=== PATIENT | female | born 1965 | race Caucasian/White ===

== ENCOUNTER 2025-01-31 09:08 | Emergency (ER) | payer OTHER ==
[~2025-01-31] VITALS: Ht 162.6 cm; Wt 59.0 kg
--- NOTE | 2025-01-31 09:35 | ED.PDOC ---
SOB-HPI HPI Comments 59 year old female presents to the ED via EMS with a chief complaint of shortness of breath onset today. Per EMS, patient was experiencing shortness of breath as well as dizziness, family called 911. Upon EMS arrival, O2 sat was 89% on RA, placed on 4L O2 sat 95%, tachycardiac 128, BP 129/87. PMHx brain tumor. Denies chest pain, fall, injury, nausea, vomiting, diarrhea, headache, fever, chills. No other symptoms or modifying factors present at this time. Chief Complaint: Shortness of Breath Time Seen by MD: 09:15 Reviewed notes: Medications, Allergies Information Source: Patient, Emergency Med Personnel Mode of Arrival: EMS Severity: Moderate Timing: Hours Duration: Since onset Context: At Rest PE Risk Factors: None History of: None Prehospital treatment: Oxygen Modifying Factors: Nothing Associated Signs and Symptoms: None Past Medical History Past Medical History (Other): brain tumor Surgical History: Denies all surgeries SPORTS PHOTOGRAPHER History: No Pertinent SPORTS PHOTOGRAPHER History Family History Family History: Reviewed,noncontributory to illness, No family hx of Cancer, No family hx of DM, No family hx of Heart peggy, No family hx of HTN, No family hx ofKidney peggy, No family hx of Liver peggy, No family hx of Lung peggy, No family hx of Stroke Social History Smoker: Non-Smoker Alcohol: Denies ETOH Use Drugs: Denies Drug Use Lives In: Home Constitutional: denies: chills, diaphoresis, fatigue, fever, malaise, sweats, weakness, others EENTM: denies: blurred vision, double vision, ear bleeding, ear discharge, ear drainage, ear pain, ear ringing, eye pain, eye redness, hearing loss, mouth pain, mouth swelling, nasal discharge, nose bleeding, nose congestion, nose pain, photophobia, tearing, throat pain, throat swelling, voice changes, others Respiratory: reports: shortness of breath; denies: cough, hemoptysis, orthopnea, SOB at rest, SOB with excertion, stridor, wheezing, others Cardiovascular: denies: chest pain, dizzy spells, diaphoresis, Dyspnea on exertion, edema, irregular heart beat, left arm pain, lightheadedness, palpitations, PND, syncope, others Gastrointestinal: denies: abdomen distended, abdominal pain, blood streaked bowels, constipated, diarrhea, dysphagia, difficulty swallowing, hematemesis, melena, nausea, poor appetite, poor fluid intake, rectal bleeding, rectal pain, vomiting, others Genitourinary: denies: abnormal vagina bleeding, burning, dyspareunia, dysuria, flank pain, frequency, hematuria, incontinence, pain, , vagina discharge, urgency, others Neurological: reports: dizziness; denies: fainting, headache, left sided numbness, left sided weakness, numbness, paresthesia, pre-existing deficit, right sided numbness, right sided weakness, seizure, speech problems, tingling, tremors, weakness, others Musculoskeletal: denies: back pain, gout, joint pain, joint swelling, muscle pain, muscle stiffness, neck pain, others Integumetry: denies: bruises, change in color, change in hair/nails, dryness, laceration, lesions, lumps, rash, wounds, others Allergic/Immunocompromised: denies: Difficulty Healing, Frequent Infections, Hives, Itching, others Hematologic/Lymphatic: denies: anemia, blood clots, easy bleeding, easy bruising, swollen glands, others Endocrine: denies: excessive hunger, excessive sweating, excessive thirst, excessive urination, flushing, intolerance to cold, intolerance to heat, unexplained weight gain, unexplained weight loss, others Psychiatric: denies: anxiety, bipolar disorder, depression, hopeless, panic disorder, schizophrenia, sleepless, suicidal, others All Other Systems: Reviewed and Negative Physical Exam General Appearance: Moderate Distress, Normal HEENT: Normal ENT Inspection, Pharynx Normal, TMs Normal Neck: Full Range of Motion, Non-Tender, Normal, Normal Inspection Respiratory: Chest Non-Tender, Lungs Clear, No Accessory Muscle Use, No Respiratory Distress, Normal Breath Sounds Cardiovascular: No Edema, No JVD, No Murmur, No Gallop, Normal Peripheral Pulses, Regular Rate/Rhythm Breast Exam: Deferred Gastrointestinal: No Organomegaly, Non Tender, No Pulsatile Mass, Normal Bowel Sounds, Soft Genitalia: Deferred Pelvic: Deferred Rectal: Deferred Extremities: No calf tenderness, Normal capillary refill, Normal inspection, Normal range of motion, Non-tender, No pedal edema Musculoskeletal : Apperance: Normal Neurologic: Alert, 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 Was a procedure done?: No Differential Dx Differential Diagnosis: Anxiety, Asthma, Bronchitis, CHF, COPD X-Ray, Labs, Meds, VS Vital Signs Date Time Temp Pulse Resp B/P (MAP) Pulse Ox O2 Delivery O2 Flow Rate FiO2 01/31/25 10:39 126 25 92 Nasal Cannula* 4 36 01/31/25 10:38 98.9 126 25 119/81 (94) 92 98.9 01/31/25 09:34 20 94 Nasal Cannula* 4 36 01/31/25 09:27 99.1 130 20 115/72 (86) 94 99.1 01/31/25 09:14 123 Lab Test 01/31/25 09:55 Range/Units White Blood Count 5.2 4.4-10.8 10^3/uL Red Blood Count 4.05 4.0-5.20 10^6/uL Hemoglobin 12.8 12.2-16.2 g/dL Hematocrit 38.7 36.0-46.0 % Mean Corpuscular Volume 95.6 80.0-100.0 fL Mean Corpuscular Hemoglobin 31.5 28.0-32.0 pg Mean Corpuscular Hemoglobin Concent 33.0 32.0-36.0 g/dL Red Cell Distribution Width 14.4 H 11.8-14.3 % Platelet Count 205 140-450 10^3/uL Mean Platelet Volume 7.6 6.9-10.8 fL Neutrophils (%) (Auto) 37.0-80.0 % Lymphocytes (%) (Auto) 10.0-50.0 % Monocytes (%) (Auto) 0.0-12.0 % Basophils (%) (Auto) 0.0-2.0 % Neutrophils # (Auto) 1.6-8.6 10 ^3/uL Lymphocytes # (Auto) 0.4-5.4 10 ^3/uL Monocytes # (Auto) 0-1.3 10 ^3/uL Differential Total Cells Counted Pending Neutrophils % (Manual) Pending Band Neutrophils % (Manual) Pending Lymphocytes % (Manual) Pending Monocytes % (Manual) Pending Eosinophils % (Manual) Pending Basophils % (Manual) Pending Metamyelocytes % (manual) Pending Myelocytes % (Manual) Pending Promyelocytes % (Manual) Pending Blast Cells % (Manual) Pending Reactive Lymphocytes Pending Platelet Estimate Pending Sodium Level 140 136-145 mmol/L Potassium Level 3.1 L 3.5-5.1 mmol/L Chloride Level 106 98-107 mmol/L Carbon Dioxide Level 24 20-31 mmol/L Anion Gap 10 5-15 Blood Urea Nitrogen 11 9-23 mg/dL Creatinine 0.79 0.550-1.02 mg/dL Glomerular Filtration Rate Calc 85 >90 mL/min BUN/Creatinine Ratio 13.9 10.0-20.0 Serum Glucose 101 74-106 mg/dL Calcium Level 9.2 8.7-10.4 mg/dL Patient alert. Speech affected. Shortness a breath. Placed on oxygen. Potassium low. Was given potassium. History of brain mass. No headache. No dizziness. Hemoglobin within normal limits. Waiting for family. Continue to monitor. [place] [address] Ph: [phone] DIAGNOSTIC IMAGING Diagnostic Imaging Report : [id number] Signed PATIENT: AUTUMN REYESCCT: [id number] UNIT: [id number] : 1965 LOC: ER ROOM / BED: / AGE / SEX: 59 / F ADM STATUS: REG ER SERVICE [id number] ORDERING PHYSICIAN: SHAHID MACARIO MD PROCEDURE(s): HWOCT - HEAD WITHOUT CONTRAST REASON: mass ORDER NUMBER(s): [id number], ACCESSION NUMBER(s): [id number] EXAM: CT HEAD WITHOUT CONTRAST INDICATION: Mass TECHNIQUE: CT of the head without intravenous contrast. Coronal and sagittal reformatted images are submitted. Radiation Dose : 1. Head: CT Dose: CTDI volume is 51.4 mGy. Dose-length product is 822.4 mGy*cm The dose indicators for CT are the volume Computed Tomography (CT) Dose Index (CTDIvol) and the Dose Length Product (DLP), and are measured in units of mGy and mGy-cm, respectively. These indicators are not patient dose, but values generated from the CT scanner acquisition factors. The report includes radiation exposure data for exposures received during this examination. All CT scans at this medical facility are performed using dose modulation techniques as appropriate to a performed exam including the following: Automated exposure control was utilized; adjustment of the MA and/or KV according to patient size; and use of iterative reconstruction technique. COMPARISON: None FINDINGS: There is extensive vasogenic edema centered within the left frontal and temporal lobe causing effacement of the left sided sulci. Heterogeneous attenuation of t he brain parenchyma in the left frontal lobe abutting the head of the left caudate lobe. There is also effacement of the frontal horn of the left lateral ventricle and there is [id number] shift of midline by 8 mm. No evidence of acute intracranial hemorrhage. No evidence of hydrocephalus. The cross-white differentiation is intact. The visualized paranasal sinuses and mastoid air cells are clear. No depressed calvarial fracture. Torsten hole in the left frontal bone. The surrounding soft tissues are unremarkable. IMPRESSION: 1. Extensive vasogenic edema in the left frontal and temporal lobe with regional mass effect and rightward shift of midline by 8 mm. An underlying mass lesion is suspected in the left frontal lobe, probably in close proximity to the head of the left caudate nucleus. MRI of the brain without and with intravenous contrast is recommended for further evaluation. ATED BY: SONG MÉNDEZ MD DICTATED DATE/TIME: 01/31/251057 SIGNED BY: SONG MÉNDEZ MD SIGNED DATE/TIME: 01/31/251057 CC: [place] [id number] Ph: [phone] DIAGNOSTIC IMAGING Diagnostic Imaging Report : [id number] Signed PATIENT: AUTUMN REYESCCT: [id number] UNIT: [id number] : 1965 LOC: ER ROOM / BED: / AGE / SEX: 59 / F ADM STATUS: REG ER SERVICE 0936 ORDERING PHYSICIAN: SHAHID MACARIO MD PROCEDURE(s): CXRP - CHEST PORTABLE REASON: sob ORDER NUMBER(s): [id number], ACCESSION NUMBER(s): [id number] XY CHEST PORTABLE, HISTORY: sob COMPARISON: None None TECHNICAL DATA: 1 view of the chest was obtained. FINDINGS: Lines and tubes: None Cardiomediastinal silhouette: normal Pulmonary vasculature: prominent Lung expansion: normal Lung airspace: normal Lung interstitium: normal Pleura: normal Pneumothorax: no Bones: Unremarkable Other: no IMPRESSION: Pulmonary congestion. ATED BY: DOUGLAS CARROLL MD DICTATED DATE/TIME: 01/31/251103 SIGNED BY: DOUGLAS CARROLL MD SIGNED DATE/TIME: 01/31/251103 CC: Time of 1ST Reevaluation: 09:45 Reevaluation 1ST: Unchanged Patient Education/Counseling: Diagnosis, Treatment, Prognosis Family Education/Counseling: No Family Present Additional Information The following tests were ordered, and results were reviewed by me: CBC, XY CHEST, UA, BMP, CT HEAD WO CONTRAST Additional Information was gathered from interviewing the following independent historians: EMS I reviewed and agreed with the following test results read by other providers: CT HEAD WO CONTRAST I discussed treatment and results with medical personnel and: Patient Comprehensive systems review obtained and negative except for what is stated in the HPI. Departure 1 Departure Time of Disposition: 11:09 Impression: Primary Impression: Brain mass Additional Impressions: Pneumonitis Hypokalemia Disposition: ADMITTED INPATIENT Admit to: Med Surg Condition: Guarded Critical Care Note Critical Care Time?: No Stability Stability form required: No Heart Score Heart Score: Heart Score Response (Comments) Value History N/A 0 EKG N/A 0 Age N/A 0 Risk Factors N/A 0 Troponin N/A 0 Total 0 I personally scribed for SHAHID MACARIO MD ([email or web address]) on 01/31/25 at 09:35. Electronically submitted by Elise Solano ([email or web address]). I personally scribed for SHAHID MACARIO MD ([email or web address]) on 01/31/25 at 09:45. Electronically submitted by Elise Solano ([email or web address]). I personally scribed for SHAHID MACARIO MD ([email or web address]) on 01/31/25 at 11:51. Electronically submitted by Elise Solano ([email or web address]). SHAHID MACARIO MD Jan 31, 2025 09:35
[2025-01-31 10:34] LABS: Chloride 106 mmol/L (98-107); Sodium 140 mmol/L (136-145)
[2025-01-31 10:35] LABS: Anion Gap 10 (5-15); Calcium 9.2 mg/dL (8.7-10.4); Carbon Dioxide 24 mmol/L (20-31)
[2025-01-31 10:39] VITALS: PULSE 126; RESP 25; O2SAT 92
[2025-01-31 10:40] LABS: BUN/Creatinine Ratio 13.9 (10.0-20.0); Blood Urea Nitrogen 11 mg/dL (9-23); Glucose 101 mg/dL (74-106)
[2025-01-31 10:45] LABS: Potassium 3.1 mmol/L (3.5-5.1)
[2025-01-31 10:52] LABS: Hematocrit 38.7 % (36.0-46.0); Hemoglobin 12.8 g/dL (12.2-16.2); Mean Corpuscular Hemoglobin 31.5 pg (28.0-32.0); Mean Corpuscular Volume 95.6 fL (80.0-100.0); Platelet Count (auto) 205 10^3/uL (140-450); Red Blood Cells 4.05 10^6/uL (4.0-5.20); Red Cell Distribution Width 14.4 % (11.8-14.3); White Blood Cell 5.2 10^3/uL (4.4-10.8)
[2025-01-31 10:53] LABS: Basophils % (manual) 0 (0.0-2.0); Blast Cells 0; Metamyelocytes % 0; Myelocytes % 0; Promyelocytes % 0; Reactive Lymphocytes 0
--- NOTE | 2025-01-31 11:00 | DVH ---
EXAM: CT HEAD WITHOUT CONTRAST INDICATION: Mass TECHNIQUE: CT of the head without intravenous contrast. Coronal and sagittal reformatted images are s ubmitted. Radiation Dose : 1. Head: CT Dose: CTDI volume is 51.4 mGy. Dose-length product is 822.4 mGy*cm The dose indicators for CT are the volume Computed Tomography (CT) Dose Index (CTDIvol) and the Dose Length Product (DLP), and are measured in units of mGy and mGy-cm, respectively. These indicators are not patient dose, but values generated from the CT scanner acquisition factors. The report includes radiation exposure data for exposures received during this examination. All CT scans at this medical facility are performed using dose modulation techniques as appropriate to a performed exam including the following: Automated exposure control was utilized; adjustment of the MA and/or KV according to patient size; and use of iterative reconstruction technique. COMPARISON: None FINDINGS: There is extensive vasogenic edema centered within the left frontal and temporal lobe causing effacem ent of the left sided sulci. Heterogeneous attenuation of the brain parenchyma in the left frontal lo be abutting the head of the left caudate lobe. There is also effacement of the frontal horn of the le ft lateral ventricle and there is [id number]-fx-xhnde shift of midline by 8 mm. No evidence of acute intrac ranial hemorrhage. No evidence of hydrocephalus. The cross-white differentiation is intact. The visualized paranasal sinuses and mastoid air cells are clear. No depressed calvarial fracture. Torsten hole in the left frontal bone. The surrounding soft tissues are unremarkable. IMPRESSION: 1. Extensive vasogenic edema in the left frontal and temporal lobe with regional mass effect and righ tward shift of midline by 8 mm. An underlying mass lesion is suspected in the left frontal lobe, prob ably in close proximity to the head of the left caudate nucleus. MRI of the brain without and with in travenous contrast is recommended for further evaluation.
--- NOTE | 2025-01-31 11:07 | DVH ---
XY CHEST PORTABLE, HISTORY: sob COMPARISON: None None TECHNICAL DATA: 1 view of the chest was obtained. FINDINGS: Lines and tubes: None Cardiomediastinal silhouette: normal Pulmonary vasculature: prominent Lung expansion: normal Lung airspace: normal Lung interstitium: normal Pleura: normal Pneumothorax: no Bones: Unremarkable Other: no IMPRESSION: Pulmonary congestion.
[2025-01-31 12:20] LABS: Band Neutrophils % (manual) 4; Eosinophils % (manual) 1 (0-7); Lymphocytes % (manual) 11 (10.0-50.0); Monocytes % (manual) 6 (0-12); Platelet Estimate Adequate
[2025-01-31] MEDS: methylPREDNISolone SOD SUCC 125 MG/2 ML VL IV ONE (13:02)
[2025-01-31 13:12] LABS: Urine Bacteria FEW /hpf (None Seen); Urine Blood TRACE /uL (Negative); Urine Clarity Turbid (Clear); Urine Color Yellow (Yellow); Urine Mucus FEW (None Seen); Urine Protein, UAD Negative (Negative); Urine Specific Gravity 1.015 (1.001-1.035); Urine Squamous Epithelial Cell FEW /hpf (<5); Urine Urobilinogen Normal (Negative); Urine WBC 13 /HPF (0-5); Urine pH 6.5 (5.0-9.0)
[2025-01-31 14:30] VITALS: BP 138/94; PULSE 122; RESP 29; TEMP 98.1; O2SAT 90
--- NOTE | 2025-01-31 23:38 | ECG ---
[facility] Test Date: 2025-01-31 Test Time: 09:14:01 Pat Name: ENRIKE ALLEN Department: ED Room: Gender: F Hardscape Foreman: jose manuel : 1965 Requested By: SHAHID MACARIO Order Number: [id number] Reading MD: Measurements Intervals [place] Rate: 123 P: 52 PA: 140 QRS: 40 QRSD: 77 T: 0 QT: 266 QTc: 381 Interpretive Statements Sinus tachycardia Consider right atrial enlargement Nonspecific repol abnormality, diffuse leads Please click the below link to view image of tracing.
== END 2025-01-31 14:38 | disposition short-term general hospital (02) ==
LOC: ER 09:08 → EDBD 09:08 → ER 14:38
DX: G93.9 Disorder of brain, unspecified (principal); J98.4 Other disorders of lung; E87.6 Hypokalemia; Z98.890 Other specified postprocedural states
CPT/HCPCS: 36415; 70450; 71045; 80048; 81001; 85007; 85027; 93005; 96374; 99285; J2919